=== PATIENT | male | born 1990 | race Two or more races ===

== ENCOUNTER 2019-08-29 07:24 | Day surgery (SDC) | payer OTHER ==
[~2019-08-29] VITALS: Ht 182.9 cm; Wt 102.1 kg
[2019-08-29] VITALS (8 sets, daily range): BP systolic 123–133; BP diastolic 79–89
--- NOTE | 2019-08-29 06:43 | Anethesia Preoperative Eval ---
Anesthesia Pre-op PMH/ROS General Date of Evaluation: Aug 29, 2019 Time of Evaluation: 06:41 Anesthesiologist: mykel ASA Score: ASA 2 Mallampati Score Class I : Soft palate, uvula, fauces, pillars visible Class II: Soft palate, uvula, fauces visible Class III: Soft palate, base of uvula visible Class IV: Only hard plate visible Mallampati Classification: Class II Surgeon: tarah Diagnosis: abdominal pain Surgical Procedure: egd Anesthesia History: none Family History: no anesthesia problems Allergies: Coded Allergies: No Known Allergies (Unverified , 05/01/19) Medications: see eMAR Patient NPO?: Yes Past Medical History Gastrointestinal/Genitourinary: Reports: GERD, other - abdominal pain Neurologic/Psychiatric: Reports: depression/anxiety Musculoskeletal/Integumentary: Reports: other - back pain Anesthesia Pre-op Phys. Exam Physician Exam Last Vital Signs Date Time Temp Pulse Resp B/P (MAP) Pulse Ox O2 Delivery O2 Flow Rate FiO2 08/29/19 07:55 98.1 81 18 125/83 100 Room Air Constitutional: NAD Neurologic: CN 2-12 intact Cardiovascular: RRR Respiratory: CTA Gastrointestinal: S/NT/ND Airway Exam Mallampati Score: Class II MO: full Neck: flexible TMD: 2fb ROM: full Teeth: intact Anesthesia Pre-op A/P Risk Assessment & Plan Assessment: asa2 Plan: mac Status Change Before Surgery: No Pre-Antibiotics Drug: Zee Baird MD Aug 29, 2019 06:43
[~2019-08-29 07:24] MED LIST: Atropine Inj 1mg/10ml Syr IV PRN; DiphenhydrAMINE 50mg/ml Inj IVP PRN; LR 1000ml 1,000 ML IVLG SCH; Midazolam 2mg/2ml Inj IVP PRN; fentaNYL 100 mcg/2 mL IV PRN
[2019-08-29] MEDS ORDERED: TYLENOL EXTRA500 MG ORAL (07:48)
[2019-08-29] MEDS ORDERED: LR 1000ml ONE (08:00)
[2019-08-29] MEDS ORDERED: Lidocaine 1% MPF 10mg/ml 5ml ONE (08:00)
[2019-08-29] MEDS ORDERED: Propofol 200mg/20ml IV ONE (08:00)
--- NOTE | 2019-08-29 08:02 | Short Stay Surgery H&P ---
History of Present Illness History of Present Illness Chief Complaint Abdominal pains and GERDs HPI Jacob Contreras is a 29 year old male who was admitted on for Abdominal Pain/ GERDs Patient History Allergies: Coded Allergies: No Known Allergies (Unverified , 05/01/19) Medication History Scheduled PRN Acetaminophen* (Tylenol Extra Strength*), 650 MG ORAL Q6H PRN for Mild Pain/ Temp > 100.5, (Reported) Review of Systems Cardiovascular: Reports: no symptoms Respiratory: Reports: no symptoms Skeletal: Reports: trauma Gastrointestinal: Reports: gastro esophageal reflux disease Genitourinary: Reports: no symptoms Neurologic: Reports: no symptoms Endocrine: Reports: no symptoms Hematologic: Reports: no symptoms Physical Exam Vital Signs Last Vital Signs Date Time Temp Pulse Resp B/P (MAP) Pulse Ox O2 Delivery O2 Flow Rate FiO2 08/29/19 07:55 98.1 81 18 125/83 100 Room Air Skin: normal HENT: normal Heart: normal Lungs: normal Abdomen: abnormal Extremities: normal Genitourinary: normal Plan Plan of Care Upper GI. endoscopy and biopsy. Preop Interventions None. Summary of Findings See the reports Attestation Are the patient's medical conditions optimized for surgery? Attestation Response: yes Apollo Garcia MD Aug 29, 2019 08:02
--- NOTE | 2019-08-29 08:03 | Pre-Procedure Note/Attestation ---
Pre-Procedure Note/Attestation Complete Prior to Procedure Planned Procedure: left Procedure Narrative: Examination of the upper GI tract via endoscopy Indications for Procedure Pre-Operative Diagnosis: R/O Gastritis/peptic ulcer Attestation I attest that I discussed the nature of the procedure; its benefits; risks and complications; and alternatives (and the risks and benefits of such alternatives ), prior to the procedure, with the patient (or the patient's legal abrasives sales representative). I attest that, if there was a reasonable possibility of needing a blood transfusion, the patient (or the patient's legal abrasives sales representative) was given the [facility] standardized written summary, pursuant to the [place] Blood Safety Act ([place] Health and Safety Code # 1645, as amended). I attest that I re-evaluated the patient just prior to the surgery and that there has been no change in the patient's H&P, except as documented below: Apollo Garcia MD Aug 29, 2019 08:03
--- NOTE | 2019-08-29 08:18 | Endoscopy Procedure Note ---
Endoscopy Procedure Note General Indication for Procedure: Abdominal pains/ GERds Procedures Performed: EGD - Mild gastritis, biopsy obtained from gastric body. Specimen: yes Pt Tolerated Procedure Well: Yes Estimated Blood Loss: none Anesthesia Anesthesiologist: Dr. Garza Anesthesia: moderate sedation Medications Medication Given: see anesthesia record Inserted Devices Implant(s) used?: No Quality Quality of Bowel Preparation: Excellent GI Core Measures 50 yrs or older w/o bx or poly: No 10yrs. F/U recommended: Not Applicable If not recommended, why?: Med reason:<3 yrs.: System Reason:<3 yrs.: Apollo Garcia MD Aug 29, 2019 08:18
--- NOTE | 2019-08-29 08:19 | Discharge Instructions ---
Discharge Instructions Discharge Instructions Follow up with: See the doctor after 2 weeks in the office for follow up For Congestive Heart Failure Reminder Report to your physician any weight gain of 5 pounds or more in one week. Apollo Garcia MD Aug 29, 2019 08:19
--- NOTE | 2019-08-29 08:36 | Immediate Post-Op Evaluation ---
Immediate Post-Op Evalulation Immediate Post-Op Evalulation Procedure: egd w/bx Date of Evaluation: Aug 29, 2019 Time of Evaluation: 08:36 IV Fluids: 250ml lr Blood Products: none Estimated Blood Loss: negligible Blood Pressure Systolic: 130 Blood Pressure Diastolic: 84 Pulse Rate: 91 Respiratory Rate: 18 O2 Sat by Pulse Oximetry: 100 Temperature (Fahrenheit): 97.3 Pain Score (1-10): 0 Nausea: No Vomiting: No Complications none Patient Status: awake, reacts, patent Hydration Status: adequate Drug: Zee Baird MD Aug 29, 2019 08:36
--- NOTE | 2019-08-29 08:38 | 48 Hour Post Anesthesia Eval ---
Post Anesthesia Evaluation Procedure: egd w/bx Date of Evaluation: Aug 29, 2019 Time of Evaluation: 08:38 Blood Pressure Systolic: 129 0: 79 Pulse Rate: 81 Respiratory Rate: 18 Temperature (Fahrenheit): 97.3 O2 Sat by Pulse Oximetry: 100 Airway: patent Nausea: No Vomiting: No Pain Intensity: 0 Hydration Status: adequate Cardiopulmonary Status: stable Mental Status/LOC: patient returned to baseline Post-Anesthesia Complications: none Follow-up care needed: N/A Zee Garza MD Aug 29, 2019 08:38
--- NOTE | 2019-08-29 14:30 | Pre-op HX & Phy Repo 2 SIG ---
DATE OF ADMISSION: 08/29/2019 HISTORY OF PRESENT ILLNESS: The patient is a 29-year-old gentleman who is being seen prior to undergoing the procedure of upper GI endoscopy for which he has been scheduled to receive for evaluation of his gastrointestinal conditions that he has been suffering subsequent to his work injury. He reported to me that he has been receiving multiple medications in the past including nonsteroidal anti-inflammatory agents such as ibuprofen. After his work accident, he started to experience pain over the upper part of the abdomen, particularly over the epigastric area. He also started to have significant amount of heartburn, which he never had before the work accident. He was seen by several physicians including his primary physician and the Pain Management who recommended for him to be treated for gastroesophageal reflux and abdominal pains. As I mentioned, the applicant at this time tells me that his abdominal pain is ongoing mostly on the upper part of the abdomen with intermittent heartburn that he has been taking medications for it intermittently. The severity of pain is reported to be almost 7/10. He also reported to me that he does have symptoms of regurgitation during the night over his chest and as such he also experiences pain over his chest area. He also reported to me that he has been gaining weight as well. This obviously happened subsequent to his work injury. Currently, he denies any hematemesis or melena, any lower GI bleeding. In his job, he was basically lifting heavy boxes and objects and he was feeling excessive pain over his lower back at the date of injury and it was gradually getting worse and he had to stop working. This happened in the year of 2012 in September. The back pain was so bad that he was diagnosed to possibly suffering from disk and surgery was suggested for him, but it was denied. He has also been seen by multiple physicians including orthopedic surgeons as well. He has also been receiving pain management and epidural injections. PAST MEDICAL HISTORY: None significant. He denies having hypertension, diabetes, thyroid conditions, hepatitis, pneumonitis, pancreatitis, etc. SURGICAL HISTORY: None. ALLERGIES: To pork. CHILDHOOD DISEASES: As usual. FAMILY HISTORY: Nonsignificant. HABITS: The applicant denies drinking alcohol or smoking cigarettes. MEDICATIONS: Currently is Tylenol though he was taking [place] in the past. REVIEW OF SYSTEMS: HEENT: Normocephalic. Pupils equal in size and reactive to light and accommodation. No visible jaundice. Buccal cavity, tongue midline, well hydrated. No ulcers. NECK: Supple. No JVD, thyromegaly, or adenopathy. CHEST: Clear to auscultation and percussion. No rales or rhonchi. HEART: S1, S2 normal. Regular rhythm. No gallops or murmur. ABDOMEN: Soft, but quite obese and tender over the epigastric area. No organomegaly, masses was found. Bowel sounds are present. EXTREMITIES: Within normal limits. No pretibial edema, cyanosis, or clubbing. NEUROLOGIC: Also the patient is stable without any localized findings. VITAL SIGNS: Temperature 98.1, pulse rate 81 per minute, respirations 18 per minute, blood pressure 125/83, oxygen saturation on room air is 100%. INITIAL PREOPERATIVE IMPRESSION: 1. Abdominal pain consistent with chronic gastroesophageal acid reflux aggravated by side effects of medications and anxiety and stress related to work accident. 2. History of bodily injury work-related. RECOMMENDATIONS: The applicant seems to be quite stable at this time to undergo the procedure of upper GI endoscopy for which he has been scheduled. He understands the risks and benefits and will sign the consent. Said Chandler Garcia DR: YOLANDE JOB#: [id number] CC:
--- NOTE | 2019-08-29 14:45 | Operative Note - Dictated ---
DATE OF OPERATION: 08/29/2019 SURGEON: Apollo Garcia M.D. PROCEDURE: Esophagogastroduodenoscopy with biopsy. PREOPERATIVE DIAGNOSES: Abdominal pain, epigastric pain, rule out peptic ulcer. POSTOPERATIVE DIAGNOSIS: Evidence of mild generalized gastritis. Biopsy was taken from gastric body. MEDICATION USED: Per Dr. Tolbert, anesthesiologist. INSTRUMENT: GIF Olympus upper GI video endoscope. DESCRIPTION OF PROCEDURE: The patient after arriving in the endoscopy unit, was told about risks and benefits of the procedure, which he accepted and signed informed consent. At this time, he was put on the left lateral decubitus position. After adequate IV sedation, the scope was gently passed through the cricopharyngeal area, was lodged into the upper esophagus and was gradually advanced towards gastroesophageal junction. The entire length of esophagus was normal. No evidence of varices, inflammatory process, ulceration, or stricture, etc. was found. At this time, the scope was passed through the GE junction, which also looked normal without evidence of hiatal hernia or Josue's. Finally, the scope was advanced into the stomach. Gastric cavity was distended with insufflation of air and gradually the areas of the fundus and the body and the antrum were examined and it looked that there was evidence of mild inflammatory process generally consistent with mild gastritis. There were no ulcers, tumors, polyps, or bleeding sites. The retroflexion maneuver was also applied and the area of the gastroesophageal junction was examined in a closer fashion, which revealed no abnormality. Finally, the scope was passed through the body and the antrum and pylorus. First and second portion of duodenum were also examined and no duodenal ulcer or stricture was found. Finally, after obtaining the biopsy from the mid gastric body, procedure was terminated. The patient tolerated the procedure well and left the endoscopy room in a good condition. Apollo Garcia M.D. DR: YOLANDE JOB#: [id number] CC:
== END 2019-08-29 09:40 | disposition home or self-care (01) ==
LOC: SUR 07:24 → EDSTATUS 08:00 → SUR 09:40
DX: K29.70 Gastritis, unspecified, without bleeding (principal); K21.9 Gastro-esophageal reflux disease without esophagitis; F41.9 Anxiety disorder, unspecified; E66.9 Obesity, unspecified; Z68.30 Body mass index [BMI] 30.0-30.9, adult; F32.9 Major depressive disorder, single episode, unspecified; K29.50 Unspecified chronic gastritis without bleeding; B96.81 Helicobacter pylori [H. pylori] as the cause of diseases classified elsewhere
CPT/HCPCS: 43239; J2704; J7120; 94003; 94150